=== PATIENT | female | born 1985 | race Caucasian/White ===

== ENCOUNTER 2016-12-26 14:19 | Emergency (ER) | payer BC, OTHER ==
--- NOTE | 2016-12-26 14:48 | EDM.PDOC ---
ED HPI GENERAL MEDICAL PROBLEM - General Chief Complaint: Genitourinary Problem Stated Complaint: POSSIBLE UTI Time Seen by Provider: 12/26/16 14:37 - History of Present Illness INITIAL COMMENTS - FREE TEXT/NARRATIVE: HISTORY AND PHYSICAL: History of present illness: The patient is a healthy 31-year-old female who follows at [facility] with Dr. Vásquez and presents with complaints of 24 hours of pressure with urination , frequency of urination of small amounts, dysuria and some slight hematuria yesterday. Patient denies any flank pain abdominal pain nausea vomiting or diarrhea and has had no fevers or chills. Patient denies STD risks and has never had any issues. Patient states she has a Mirena in place. Patient states that she has taken extu-bgf-[id number] cranberry pills but nothing else. Review of systems: As per history of present illness and below otherwise all systems reviewed and negative. Past medical history: As per history of present illness and as reviewed below otherwise noncontributory. Surgical history: As per history of present illness and as reviewed below otherwise noncontributory. Social history: No reported history of drug or alcohol abuse. Family history: As per history of present illness and as reviewed below otherwise noncontributory. Physical exam: Gen.: Well-developed well-nourished female who is nontoxic and vital signs have been reviewed by me. HEENT: Atraumatic, normocephalic, negative for conjunctival pallor or scleral icterus, mucous membranes moist, throat clear, neck supple, nontender, trachea midline. Lungs: Clear to auscultation, breath sounds equal bilaterally, chest nontender. Heart: S1S2, regular rate and rhythm no overt murmurs Abdomen: Soft, nondistended, nontender. NABS Pelvis: Stable nontender. Genitourinary: Deferred. Rectal: Deferred. Extremities: Atraumatic, negative for cords or calf pain. Neurovascular unremarkable. Neuro: Awake, alert, oriented. Cranial nerves II through XII unremarkable. Cerebellum unremarkable. Motor and sensory unremarkable throughout. Exam nonfocal. Diagnostics: UA UCG urine culture Therapeutics: [] Impression: Dysuria/UTI-cystitis Definitive disposition and diagnosis as appropriate pending reevaluation and review of above. hypogastric Pain Score (Numeric/FACES): 7 - Related Data Allergies Allergy/AdvReac Type Severity Reaction Status Date / Time No Known Allergies Allergy Verified 12/26/16 14:40 Home Meds: Home Meds . [No Known Home Meds] 12/26/16 [History] Past Medical History - Past Health History Medical/Surgical History: Denies Medical/Surgical History Social & Family History - Tobacco Use Smoking Status *Q: Current Every Day Smoker Years of Tobacco use: 14 Second Hand Smoke Exposure: No - Alcohol Use Days Per Week of Alcohol Use: 0 Number of Drinks Per Day: 2 Total Drinks Per Week: 0 - Recreational Drug Use Recreational Drug Use: No ED ROS GENERAL - Review of Systems Review Of Systems: ROS reveals no pertinent complaints other than HPI. ED EXAM, GENERAL - Physical Exam Exam: See Below (See dictation) Course - Vital Signs Last Recorded V/S: Last Vital Signs Temp 36.7 C 12/26/16 14:19 Pulse 99 12/26/16 14:19 Resp 18 12/26/16 14:19 BP 117/71 12/26/16 14:19 Pulse Ox 95 12/26/16 14:19 - Orders/Labs/Meds Orders: Active Orders 24 hr Category Date Time Status CULTURE URINE [RM] Stat Lab 12/26/16 15:10 Received Labs: Laboratory Tests 12/26/16 12/26/16 Range/Units 15:10 15:10 Urine Color DARK YELLOW Urine Appearance CLEAR Urine pH 6.0 (5.0-8.0) Ur Specific [place] 1.020 (1.001-1.035) Urine Protein >=300 (NEGATIVE) mg/dL Urine Glucose (UA) NEGATIVE (NEGATIVE) mg/dL Urine Ketones TRACE H (NEGATIVE) mg/dL Urine Occult Blood LARGE H (NEGATIVE) Urine Nitrite NEGATIVE (NEGATIVE) Urine Bilirubin NEGATIVE (NEGATIVE) Urine Urobilinogen 0.2 (<2.0) EU/dL Ur Leukocyte Esterase NEGATIVE (NEGATIVE) Urine RBC TOO NUMBEROUS TO CT H (0-2/HPF) Urine WBC 15-20 (0-5/HPF) Ur Epithelial Cells MODERATE (NONE-FEW) Urine Bacteria FEW (NEGATIVE) Urine Mucus MODERATE (NONE-MOD) Urine HCG, Qual NEGATIVE (NEGATIVE) Departure - Departure Time of Disposition: 15:45 Disposition: Home, Self-Care 01 Clinical Impression: Dysuria, UTI, Urinary tract infectious disease - Discharge Information Referrals: Best Vásquez MD [Primary Care Provider] - Forms: ED Department Discharge Additional Instructions: The following information is given to patients seen in the emergency department who are being discharged to home. This information is to outline your options for follow-up care. We provide all patients seen in our emergency department with a follow-up referral. The need for follow-up, as well as the timing and circumstances, are variable depending upon the specifics of your emergency department visit. If you don't have a primary care physician on staff, we will provide you with a referral. We always advise you to contact your personal physician following an emergency department visit to inform them of the circumstance of the visit and for follow-up with them and/or the need for any referrals to a consulting specialist. The emergency department will also refer you to a specialist when appropriate. This referral assures that you have the opportunity for followup care with a specialist. All of these measure are taken in an effort to provide you with optimal care, which includes your followup. Under all circumstances we always encourage you to contact your private physician who remains a resource for coordinating your care. When calling for followup care, please make the office aware that this follow-up is from your recent emergency room visit. If for any reason you are refused follow-up, please contact the [facility] emergency department at and ask to speak to the emergency department charge nurse. [address] [place] [address] Push hydration and please contact your provider, Dr. Vásquez, at [facility] for follow-up and further evaluation/care. Return to ER as needed and as discussed. Please take medications as directed and be sure to finish the antibiotics you have been given - My Orders Last 24 Hours: My Active Orders 12/26/16 15:10 CULTURE URINE [RM] Stat - Assessment/Plan Last 24 Hours: My Active Orders 12/26/16 15:10 CULTURE URINE [RM] Stat
[2016-12-26 15:59] VITALS: BP 118/75
== END 2016-12-26 15:56 | disposition home or self-care (01) ==
LOC: MW.ED 14:19
DX: N39.0 Urinary tract infection, site not specified (principal); F17.210 Nicotine dependence, cigarettes, uncomplicated
CPT/HCPCS: 81001; 81025; 87086; 87088; 87186; 99283

== ENCOUNTER 2016-12-29 15:36 | Emergency (ER) | payer BC ==
--- NOTE | 2016-12-29 16:09 | EDM.PDOC ---
ED HPI GENERAL MEDICAL PROBLEM - General Chief Complaint: Flank Pain Stated Complaint: UTI NOT GETTING ANY BETTER Time Seen by Provider: 12/29/16 15:45 Source of Information: Reports: Patient History Limitations: Reports: No Limitations - History of Present Illness INITIAL COMMENTS - FREE TEXT/NARRATIVE: HISTORY AND PHYSICAL: History of present illness: Patient is a 31-year-old female who presents to the emergency room today with complaints of dysuria, pelvic pain that radiates to bilateral flanks, and chills. She states she has had dysuria with pressure for approximately 1 week prior to today. She was seen in the emergency room on 12-26-2016 for UTI symptoms and was placed on Bactrim DS and Pyridium. She states that the discomfort with urination has subsided since completing Pyridium, but still has pressure in her suprapubic/low abdomin that radiates into both flank areas. The urine culture reveals that there is Escherichia coli in the urine with sensitivity to most antibiotics. Has been taking cranberry pills [id number]. Has an IUD and had a negative test on 12-26-2016. Review of systems: As per history of present illness and below otherwise all systems reviewed and negative. Past medical history: As per history of present illness and as reviewed below otherwise noncontributory. Surgical history: As per history of present illness and as reviewed below otherwise noncontributory. Social history: No reported history of drug or alcohol abuse. Family history: As per history of present illness and as reviewed below otherwise noncontributory. Physical exam: HEENT: Atraumatic, normocephalic, pupils reactive, negative for conjunctival pallor or scleral icterus, mucous membranes moist, throat clear, neck supple, nontender, trachea midline. Lungs: Clear to auscultation, breath sounds equal bilaterally, chest nontender. Heart: S1S2, regular, negative for clicks, rubs, or JVD. Abdomen: Soft, nondistended, suprapubic tenderness with palpation. Negative for masses or hepatosplenomegaly. Positive for costovertebral tenderness bilaterally. Pelvis: Stable nontender. Genitourinary: Deferred. Rectal: Deferred. Extremities: Atraumatic, negative for cords or calf pain. Neurovascular unremarkable. Neuro: Awake, alert, oriented. Cranial nerves II through XII unremarkable. Cerebellum unremarkable. Motor and sensory unremarkable throughout. Exam nonfocal. The CT scan showed that the bladder has wall thickening with perivesical stranding, consistent with cystitis. This was shared with the patient. Reviewing the urine culture her current Bactrim should be sufficient in treating her UTI. Patient states that the dysuria was alleviated after completing the Pyridium. I did encourage her to increase her oral fluids continue taking her prescribed antibiotic. Tramadol will be prescribed as needed for pain management. Diagnostics: CBC, CMP, CT abdomen and pelvis with contrast Therapeutics: IV fluids, Toradol Impression: UTI with cystitis Plan: 1. Please continue your antibiotic as prescribed. Encourage oral fluids. Take tramadol as needed for pain management. This medication may cause drowsiness or do not while needing to be functioning or driving. May take ibuprofen as needed for breakthrough pain. Apply gentle heat to the area as needed for pain relief as well. 2. Follow-up with your primary care provider in the next 1-2 days. Return to the ED as needed as discussed. Definitive disposition and diagnosis as appropriate pending reevaluation and review of above. Duration: Day(s): pelvic/bilateral flank Pain Score (Numeric/FACES): 7 - Related Data Allergies Allergy/AdvReac Type Severity Reaction Status Date / Time No Known Allergies Allergy Verified 12/29/16 16:00 Home Meds: Home Meds . 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 ED EXAM, RENAL/ - Physical Exam Exam: See Below (See dictation) Course - Vital Signs Last Recorded V/S: Last Vital Signs Temp 36.6 C 12/29/16 15:57 Pulse 73 12/29/16 15:57 Resp 16 12/29/16 15:57 BP 123/91 H 12/29/16 15:57 Pulse Ox 98 12/29/16 15:57 - Orders/Labs/Meds Orders: Active Orders 24 hr Category Date Time Status Abdomen Pelvis w Cont [CT] Stat Exams 12/29/16 16:01 Taken Labs: Laboratory Tests 12/29/16 12/29/16 Range/Units 16:09 16:09 WBC 10.86 (4.0-11.0) K/uL RBC 4.32 (4.30-5.90) M/uL Hgb 14.4 (12.0-16.0) g/dL Hct 42.9 (36.0-46.0) % MCV 99.3 H (80.0-98.0) fL MCH 33.3 H (27.0-32.0) pg MCHC 33.6 (31.0-37.0) g/dL RDW Std Deviation 44.4 (28.0-62.0) fl RDW Coeff of Yahaira 12 (11.0-15.0) % Plt Count 233 (150-400) K/uL MPV 10.30 (7.40-12.00) fL Neut % (Auto) 67.8 (48.0-80.0) % Lymph % (Auto) 26.2 (16.0-40.0) % Whitman % (Auto) 4.5 (0.0-15.0) % Eos % (Auto) 0.9 (0.0-7.0) % Baso % (Auto) 0.6 (0.0-1.5) % Neut # (Auto) 7.4 H (1.4-5.7) K/uL Lymph # (Auto) 2.9 H (0.6-2.4) K/uL Whitman # (Auto) 0.5 (0.0-0.8) K/uL Eos # (Auto) 0.1 (0.0-0.7) K/uL Baso # (Auto) 0.1 (0.0-0.1) K/uL Nucleated RBC % 0.0 /100WBC Nucleated RBCs # 0 K/uL Sodium 139 (136-146) mmol/L Potassium 4.0 (3.5-5.1) mmol/L Chloride 104 (98-110) mmol/L Carbon Dioxide 24 (21-31) mmol/L BUN 7 (6.0-23.0) mg/dL Creatinine 0.7 (0.6-1.5) mg/dL Est Cr Clr Drug Dosing TNP Estimated GFR (MDRD) > 60.0 ml/min Glucose 86 (60-110) mg/dL Calcium 9.4 (8.8-10.8) mg/dL Total Bilirubin 1.0 (0.1-1.5) mg/dL AST 20 (5-40) IU/L ALT 15 (8-54) IU/L Alkaline Phosphatase 56 (40-150) Total Protein 7.3 (6.0-8.0) g/dL Albumin 4.2 (3.5-5.0) g/dL Globulin 3.1 (2.0-3.5) g/dL Albumin/Globulin Ratio 1.4 (1.3-2.8) Meds: Medications Discontinued Medications Generic Name Dose Route Start Last Admin Trade Name Freq PRN Reason Stop Dose Admin Sodium Chloride 1,000 mls @ 999 mls/hr 12/29/16 16:28 12/29/16 16:33 Normal Saline IV 12/29/16 17:28 999 mls/hr STAT ONE Administration Iopamidol 100 ml 12/29/16 16:58 12/29/16 16:58 Isovue Multipack-370 (76%) IVPUSH 12/29/16 16:59 100 ml ONETIME STA Administration Ketorolac Tromethamine 30 mg 12/29/16 16:23 12/29/16 16:33 Toradol IVPUSH 12/29/16 16:24 30 mg ONETIME ONE Administration Departure - Departure Time of Disposition: 18:08 Disposition: Home, Self-Care 01 Clinical Impression: UTI, Urinary tract infectious disease - Discharge Information Referrals: Best Vásquez MD [Primary Care Provider] - Forms: ED Department Discharge Additional Instructions: My general discharge The following information is given to patients seen in the emergency department who are being discharged to home. This information is to outline your options for follow-up care. We provide all patients seen in our emergency department with a follow-up referral. The need for follow-up, as well as the timing and circumstances, are variable depending upon the specifics of your emergency department visit. If you don't have a primary care physician on staff, we will provide you with a referral. We always advise you to contact your personal physician following an emergency department visit to inform them of the circumstance of the visit and for follow-up with them and/or the need for any referrals to a consulting specialist. The emergency department will also refer you to a specialist when appropriate. This referral assures that you have the opportunity for follow-up care with a specialist. All of these measure are taken in an effort to provide you with optimal care, which includes your follow-up. Under all circumstances we always encourage you to contact your private physician who remains a resource for coordinating your care. When calling for follow-up care, please make the office aware that this follow-up is from your recent emergency room visit. If for any reason you are refused follow-up, please contact the [facility] Emergency Department at and asked to speak to the emergency department charge nurse. [facility] [address] [place] [phone] 1. Please continue your antibiotic as prescribed. Encourage oral fluids. Take tramadol as needed for pain management. This medication may cause drowsiness or do not while needing to be functioning or driving. May take ibuprofen as needed for breakthrough pain. Apply gentle heat to the area as needed for pain relief as well. 2. Follow-up with your primary care provider in the next 1-2 days. Return to the ED as needed as discussed. - My Orders Last 24 Hours: My Active Orders 12/29/16 16:01 Abdomen Pelvis w Cont [CT] Stat - Assessment/Plan Last 24 Hours: My Active Orders 12/29/16 16:01 Abdomen Pelvis w Cont [CT] Stat
[2016-12-29] MEDS ORDERED: Ketorolac 30 MG/ML SDV IVPUSH ONE (16:23)
[2016-12-29] MEDS ORDERED: Sodium Chloride 0.9% 1,000 ML IV ONE (16:28)
[2016-12-29 16:34] LABS: CHLORIDE,CL 104 mmol/L (98-110); SODIUM,NA 139 mmol/L (136-146)
[2016-12-29] MEDS ORDERED: Iopamidol 755 MG/ML 500 ML Multipack Bottle IVPUSH STA (16:58)
[2016-12-29 18:24] VITALS: BP 119/76
--- NOTE | 2016-12-30 12:25 | CT ---
EXAM DATE: 12/29/16 PATIENT'S AGE: 31 Patient: MACK RODRIGUEZ Facility: [place], [place] Site Site : 1985 Study: CT Abdomen/Pelvis [id number] 5:06:51 PM Ordering Physician: AUSTEN LANCASTER NP Final Report: INDICATION: BILATERAL FLANK PAIN, RECENT UTI CT ABDOMEN AND PELVIS WITH CONTRAST TECHNIQUE: Multidetector CT imaging was performed through the abdomen and pelvis following intravenous contrast administration using 100 mL Isovue 370. Coronal and sagittal reconstructions were generated. COMPARISON: None. FINDINGS: Lower chest: Lung bases are clear aside from trace left basilar atelectasis. Breast implants are noted, incompletely imaged. Liver: 3.5 centimeter hypodensity in the left hepatic lobe adjacent to the IVC, with lobulated peripheral enhancement, consistent with a hemangioma. Small probable hemangioma in the right hepatic lobe on image 32 of series 201 and a small probable cyst in the right hepatic lobe on image 34 of series 201. Gallbladder and bile ducts: No gallbladder wall thickening or calcified gallstones. No biliary dilation identified. Pancreas: Unremarkable. Spleen: Normal. Adrenals: No nodules or masses. Kidneys, ureters, and urinary bladder: No renal masses or hydronephrosis. No convincing evidence of pyelonephritis. Diffuse wall thickening of the urinary bladder with perivesical stranding, consistent with cystitis. Gastrointestinal tract: Normal caliber bowel without wall thickening. The appendix is normal. Vascular structures: Normal for age. Peritoneum: Trace amount of free fluid in the lower pelvis posteriorly. No free air or evidence of intra-abdominal abscess. Lymph nodes: No pathologically enlarged nodes identified. Reproductive organs: IUD within the uterus. No pelvic masses. Bones: Normal for age. IMPRESSION: 1. Urinary bladder wall thickening with perivesical stranding, consistent with cystitis. 2. Nonacute additional findings as detailed above. JERRY WALKER MD [employer] Dictated by Travis Walker MD @ 12/29/2016 5:48:26 PM Dictated by: Travis Walker MD @ 12/29/2016 17:51:12 (Electronic Signature) Report Signed by Proxy. [facility]
== END 2016-12-29 18:18 | disposition home or self-care (01) ==
LOC: MW.ED 15:36
DX: N30.90 Cystitis, unspecified without hematuria (principal); F17.210 Nicotine dependence, cigarettes, uncomplicated
CPT/HCPCS: 36415; 74177; 80053; 85025; 96361; 96374; 99284; J1885; J7040; Q9967; 99283

== ENCOUNTER 2017-04-07 13:35 | Emergency (ER) | payer SELFPAY ==
[2017-04-07] MEDS ORDERED: Ibuprofen 600 MG Tab PO ONE (15:24)
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
[2017-04-07 16:44] VITALS: BP 110/76
--- NOTE | 2017-04-10 14:56 | CR ---
EXAM DATE: 04/07/17 PATIENT'S AGE: 31 Patient: MACK RODRIGUEZ Facility: [place], [place] Site . Site : 1985 Study: XRay Extremity Right hand [id number]/[id number] 3:48:05 PM Ordering Physician: Austyn Tamez Final Report: Indication: Injury and pain Technique: Right hand 2 views Comparison: None Findings: Bones: Alignment is normal. No fractures or bone lesions. Joint spaces: Unremarkable. Soft tissues: Unremarkable. Impression: No sign of acute injury. Dictated by Bunny Cheatham MD @ Apr 07 2017 4:16PM (Electronic Signature) Report Signed by Proxy. ANDRAE
== END 2017-04-07 16:15 | disposition home or self-care (01) ==
LOC: MW.ED 13:35
DX: S61.411A Laceration without foreign body of right hand, initial encounter (principal); S00.33XA Contusion of nose, initial encounter; F17.210 Nicotine dependence, cigarettes, uncomplicated; F41.0 Panic disorder [episodic paroxysmal anxiety]; W22.01XA Walked into wall, initial encounter
CPT/HCPCS: 73120; 99283; A9270

== ENCOUNTER 2019-04-29 13:42 | Emergency (ER) | payer OTHER ==
[2019-04-29] MEDS ORDERED: Sodium Chloride 0.9% 1,000 ML IV ONE (14:49)
[2019-04-29] MEDS ORDERED: Ondansetron 4 MG/2 ML SDV IVPUSH ONE (14:49)
--- NOTE | 2019-04-29 15:04 | EDM.PDOC ---
ED HPI GENERAL MEDICAL PROBLEM - General Chief Complaint: General Stated Complaint: FLU/DEHYDRATION Time Seen by Provider: 04/29/19 13:44 Source of Information: Reports: Patient History Limitations: Reports: No Limitations - History of Present Illness INITIAL COMMENTS - FREE TEXT/NARRATIVE: HISTORY OF PRESENT ILLNESS: Patient is a 33-year-old female who was diagnosed with influenza on Monday. She was prescribed Tamiflu and now is having nausea , vomiting ,diarrhea, which is nonbloody. Had 3 episodes of emesis today. Patient had tactile fever at home, generalized malaise and myalgias. Denies any rash or neck stiffness. No abdominal pain or urinary symptoms. Patient denies , is on Mirena. Denies any chest pain or dyspnea. Here she feels dehydrated and is requesting IV fluids. REVIEW OF SYSTEMS: Other than the symptoms associated with the present events, the following is reported with regard to recent health: General: (+) fever. HENT: (-) congestion. Respiratory: (-) cough. Cardiovascular: (-) chest pain. GI: (-) abdominal pain. (+) n/v/d : (-) urinary complaints. Musculoskeletal: (+) generalized myalgias Endocrine: (+) generalized weakness. Neurological: (-) localized weakness. Skin: (-) rash PAST MEDICAL HISTORY: reviewed as per nursing notes SOCIAL HISTORY: reviewed as per nursing notes, MEDICATIONS: Per nurse's note ALLERGIES: Per nurse's note, reviewed by me PHYSICAL EXAMINATION: GENERALIZED APPEARANCE: well developed, well nourished in no distress VITAL SIGNS: Per nurse's note, reviewed by me SKIN: Warm, dry; (-) cyanosis; (-) rash. HEAD: (-) scalp swelling, (-) tenderness. EYES: (-) conjunctival pallor, (-) scleral icterus. ENMT: (-) stridor; mucous membranes moist. No pharyngeal erythema. Uvula midline. No trismus. No phonation changes. NECK: (-) tenderness, (-) stiffness, CHEST AND RESPIRATORY: (-) rales, (-) rhonchi, (-) wheezes; breath sounds equal bilaterally. HEART AND CARDIOVASCULAR: (-) irregularity; (-) murmur, (-) gallop. ABDOMEN AND GI: Soft; (-) tenderness, (-) guarding, (-) rebound, (-) palpable masses, no McBurney's point tenderness. No CVA tenderness EXTREMITIES: (-) deformity, (-) edema. NEURO AND PSYCH: Alert. Cranial nerves grossly intact; strength symmetric. gait steady EMERGENCY DEPARTMENT COURSE AND TREATMENT: Patient's condition remained stable during Emergency Department evaluation. After history, physical examthe etiology for the patient's vomiting/diarrhea is likely due to influenza itself or side effect of Tamiflu. Do not suspect acute abdominal or emergent etiology. On serial examination, the abdomen remained soft without peritoneal signs. After treatment, vomiting resolved and hydration status was satisfactory. I think the patient is at low risk for significant abdominal pathology based on serial exams and clinical evaluation. I felt that outpatient management with close followup by the patient's primary care provider in 1-2 days was appropriate. The patient's questions were answered, and discharge precautions and reasons to return to the clinic were discussed. PLAN AND FOLLOW-UP: Patient received written and verbal instructions regarding this condition. Return to ED immediately with any new or worsening symptoms. Follow up to be arranged by patient with pcp in 1-2 days for further evaluation. Given discharge precautions. Patient expressed verbal understanding. 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 History: Reports: Anxiety, Panic Attack - Infectious Disease History Infectious Disease History: Reports: Influenza Social & Family History - Family History Family Medical History: Noncontributory - Tobacco Use Smoking Status *Q: Never Smoker Second Hand Smoke Exposure: No - Caffeine Use Caffeine Use: Reports: None - Recreational Drug Use Recreational Drug Use: No ED ROS GENERAL - Review of Systems Review Of Systems: See Below (see dictation) ED EXAM, GENERAL - Physical Exam Exam: See Below (see dictation) Course - Vital Signs Last Recorded V/S: Last Vital Signs Temp 98.1 F 04/29/19 14:06 Pulse 71 04/29/19 14:06 Resp 16 04/29/19 14:06 BP 117/78 04/29/19 14:06 Pulse Ox 98 04/29/19 14:06 - Orders/Labs/Meds Orders: Active Orders 24 hr Category Date Time Status Encourage Fluids [Oral Fluid Challenge] [RC] ASDIRECTED Care 04/29/19 15:29 Active Sodium Chloride 0.9% [Normal Saline] 1,000 ml Med 04/29/19 14:49 Active IV .Bolus Medication Orders Sodium Chloride (Normal Saline) 1,000 mls @ 1,000 mls/hr IV .Bolus ONE Stop: 04/29/19 15:48 Last Admin: 04/29/19 15:05 Dose: 1,000 mls/hr Meds: Medications Generic Name Dose Route Start Last Admin Trade Name Freq PRN Reason Stop Dose Admin Sodium Chloride 1,000 mls @ 1,000 mls/hr 04/29/19 14:49 04/29/19 15:05 Normal Saline IV 04/29/19 15:48 1,000 mls/hr .Bolus ONE Administration Discontinued Medications Generic Name Dose Route Start Last Admin Trade Name Freq PRN Reason Stop Dose Admin Ondansetron HCl 4 mg 04/29/19 14:49 04/29/19 15:06 Zofran IVPUSH 04/29/19 14:50 4 mg ONETIME ONE Administration Departure - Departure Time of Disposition: 15:40 Disposition: Home, Self-Care 01 Condition: Good Clinical Impression: Vomiting and diarrhea - Discharge Information *PRESCRIPTION DRUG MONITORING PROGRAM REVIEWED*: Not Applicable *COPY OF PRESCRIPTION DRUG MONITORING REPORT IN PATIENT LOTTIE: Not Applicable Prescriptions: Ondansetron [Zofran ODT] 4 mg PO Q6H PRN #12 tab.dis PRN Reason: Nausea/Vomiting Instructions: Diarrhea, Adult, Nausea and Vomiting, Adult Referrals: Shonna Sandhu SALES ORDER PROCESSOR [Primary Care Provider] - 2 Days Forms: ED Department Discharge Additional Instructions: The following information is given to patients seen in the emergency department who are being discharged to home. This information is to outline your options for follow-up care. We provide all patients seen in our emergency department with a follow-up referral. The need for follow-up, as well as the timing and circumstances, are variable depending upon the specifics of your emergency department visit. If you don't have a primary care physician on staff, we will provide you with a referral. We always advise you to contact your personal physician following an emergency department visit to inform them of the circumstance of the visit and for follow-up with them and/or the need for any referrals to a consulting specialist. The emergency department will also refer you to a specialist when appropriate. This referral assures that you have the opportunity for follow-up care with a specialist. All of these measure are taken in an effort to provide you with optimal care, which includes your follow-up. Under all circumstances we always encourage you to contact your private physician who remains a resource for coordinating your care. When calling for follow-up care, please make the office aware that this follow-up is from your recent emergency room visit. If for any reason you are refused follow-up, please contact the [facility] Emergency Department at and asked to speak to the emergency department charge nurse. Sepsis Event Note - Evaluation Sepsis Screening Result: No Definite Risk - Focused Exam Vital Signs: Vital Signs Temp Pulse Resp BP Pulse Ox 04/29/19 14:06 98.1 F 71 16 117/78 98 Date Exam was Performed: 04/29/19 Time Exam was Performed: 15:40 - My Orders Last 24 Hours: My Active Orders 04/29/19 14:49 Sodium Chloride 0.9% [Normal Saline] 1,000 ml IV .Bolus 04/29/19 15:29 Encourage Fluids [Oral Fluid Challenge] [RC] ASDIRECTED - Assessment/Plan Last 24 Hours: My Active Orders 04/29/19 14:49 Sodium Chloride 0.9% [Normal Saline] 1,000 ml IV .Bolus 04/29/19 15:29 Encourage Fluids [Oral Fluid Challenge] [RC] ASDIRECTED
[2019-04-29 16:12] VITALS: BP 124/73; PULSE 66
== END 2019-04-29 16:20 | disposition home or self-care (01) ==
LOC: MW.ED 13:42
DX: R11.2 Nausea with vomiting, unspecified (principal); R19.7 Diarrhea, unspecified; R50.9 Fever, unspecified; R53.81 Other malaise; F41.9 Anxiety disorder, unspecified; Z79.899 Other long term (current) drug therapy
CPT/HCPCS: 96361; 96374; 99283; J2405; J7030

== ENCOUNTER 2019-09-29 10:54 | Emergency (ER) | payer OTHER ==
[2019-09-29] MEDS ORDERED: Ondansetron 4 MG/2 ML SDV IVPUSH ONE (11:28)
[2019-09-29] MEDS ORDERED: Morphine 4 MG/ML Syringe IVPUSH ONE (11:28)
--- NOTE | 2019-09-29 11:33 | EDM.PDOC ---
ED HPI GENERAL MEDICAL PROBLEM - General Chief Complaint: Genitourinary Problem Stated Complaint: BACK PAIN Time Seen by Provider: 09/29/19 10:57 - History of Present Illness INITIAL COMMENTS - FREE TEXT/NARRATIVE: 34-year-old female presenting with sudden severe inferior right lower quadrant pain that started during intercourse. Nothing unusual about the intercourse no vaginal bleeding patient was doing well prior to the episode. Pain improves with stillness and rest but any motion worsens the symptoms she has to walk on her tiptoes. No fevers no radiation of the pain no vaginal discharge. No nausea no vomiting and again patient was in her normal state of health prior to this. She does have a history of a similar but less severe episode sometime ago she was seen [facility] that time and diagnosed with an ovarian cyst. No history of prior surgeries no meds or allergies. Symptoms currently moderate but worsened significantly with motion. Patient does not have a history of any prior STIs pelvic Pain Score (Numeric/FACES): 7 - Related Data Allergies Allergy/AdvReac Type Severity Reaction Status Date / Time No Known Allergies Allergy Verified 09/29/19 11:03 Home Meds: Home Meds . 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 Skin: No rash. Eyes: No vision problems. ENT: No sore throat. Neck: No neck stiffness. Respiratory: No shortness of breath. Cardiac: No chest pain. Gastrointestinal: Per HPI Urinary: No dysuria. Musculoskeletal: No myalgias/arthralgias. Neurologic: No headache. ED EXAM, GENERAL - Physical Exam Exam: See Below Free Text/Narrative:: General Appearance: No acute distress, appears comfortable Skin: No rash HEENT: Normocephalic/atraumatic, sclera anicteric, mucous membranes moist Neck: Normal range of motion Chest and Lungs: Bilateral breath sounds, clear to auscultation Cardiovascular: Regular rate and rhythm, no murmur Abdomen: Soft, right lower quadrant tenderness with some guarding : Normal external female genitalia on speculum exam significant pain unable to tolerate visualization of the cervix no signs of bleeding or abnormal discharge on bimanual exam significant discomfort particularly with manipulation of the cervix service feels closed no blood noted Back: Normal Musculoskeletal: No edema or tenderness Neurologic: Awake, alert, no obvious deficits, moving all extremities Psychiatric: Appropriate, cooperative Course - Vital Signs Last Recorded V/S: Last Vital Signs Temp 97.6 F 09/29/19 11:04 Pulse 71 09/29/19 13:21 Resp 16 09/29/19 13:21 BP 123/87 09/29/19 14:27 Pulse Ox 98 09/29/19 13:21 - Orders/Labs/Meds Labs: Laboratory Tests 09/29/19 09/29/19 09/29/19 Range/Units 11:09 11:09 11:30 WBC 13.72 H (4.0-11.0) K/uL RBC 4.61 (4.30-5.90) M/uL Hgb 14.9 (12.0-16.0) g/dL Hct 43.7 (36.0-46.0) % MCV 94.8 (80.0-98.0) fL MCH 32.3 H (27.0-32.0) pg MCHC 34.1 (31.0-37.0) g/dL RDW Std Deviation 44.3 (28.0-62.0) fl RDW Coeff of Yahaira 13 (11.0-15.0) % Plt Count 195 (150-400) K/uL MPV 10.90 (7.40-12.00) fL Neut % (Auto) 73.0 (48.0-80.0) % Lymph % (Auto) 20.5 (16.0-40.0) % [place] % (Auto) 4.7 (0.0-15.0) % Eos % (Auto) 1.4 (0.0-7.0) % Baso % (Auto) 0.4 (0.0-1.5) % Neut # (Auto) 10.0 H (1.4-5.7) K/uL Lymph # (Auto) 2.8 H (0.6-2.4) K/uL [place] # (Auto) 0.6 (0.0-0.8) K/uL Eos # (Auto) 0.2 (0.0-0.7) K/uL Baso # (Auto) 0.1 (0.0-0.1) K/uL Nucleated RBC % 0.0 /100WBC Nucleated RBCs # 0 K/uL Sodium (136-145) mmol/L Potassium (3.5-5.1) mmol/L Chloride (98-107) mmol/L Carbon Dioxide (21.0-32.0) mmol/L BUN (7.0-18.0) mg/dL Creatinine (0.6-1.0) mg/dL Est Cr Clr Drug Dosing mL/min Estimated GFR (MDRD) ml/min Glucose (74-106) mg/dL Calcium (8.5-10.1) mg/dL Total Bilirubin (0.2-1.0) mg/dL AST (15-37) IU/L ALT (14-63) IU/L Alkaline Phosphatase (46-116) U/L Total Protein (6.4-8.2) g/dL Albumin (3.4-5.0) g/dL Globulin (2.6-4.0) g/dL Albumin/Globulin Ratio (0.9-1.6) Lipase (73-393) U/L Urine Color YELLOW Urine Appearance CLEAR Urine pH 6.5 (5.0-8.0) Ur Specific [place] 1.025 (1.001-1.035) Urine Protein NEGATIVE (NEGATIVE) mg/dL Urine Glucose (UA) NEGATIVE (NEGATIVE) mg/dL Urine Ketones NEGATIVE (NEGATIVE) mg/dL Urine Occult Blood NEGATIVE (NEGATIVE) Urine Nitrite NEGATIVE (NEGATIVE) Urine Bilirubin NEGATIVE (NEGATIVE) Urine Urobilinogen 0.2 (<2.0) EU/dL Ur Leukocyte Esterase NEGATIVE (NEGATIVE) Urine RBC 0-1 (0-2/HPF) Urine WBC 0-1 (0-5/HPF) Ur Epithelial Cells FEW (NONE-FEW) Urine Bacteria RARE (NEGATIVE) Urine HCG, Qual NEGATIVE (NEGATIVE) 09/29/19 Range/Units 11:30 WBC (4.0-11.0) K/uL RBC (4.30-5.90) M/uL Hgb (12.0-16.0) g/dL Hct (36.0-46.0) % MCV (80.0-98.0) fL MCH (27.0-32.0) pg MCHC (31.0-37.0) g/dL RDW Std Deviation (28.0-62.0) fl RDW Coeff of Yahaira (11.0-15.0) % Plt Count (150-400) K/uL MPV (7.40-12.00) fL Neut % (Auto) (48.0-80.0) % Lymph % (Auto) (16.0-40.0) % [place] % (Auto) (0.0-15.0) % Eos % (Auto) (0.0-7.0) % Baso % (Auto) (0.0-1.5) % Neut # (Auto) (1.4-5.7) K/uL Lymph # (Auto) (0.6-2.4) K/uL [place] # (Auto) (0.0-0.8) K/uL Eos # (Auto) (0.0-0.7) K/uL Baso # (Auto) (0.0-0.1) K/uL Nucleated RBC % /100WBC Nucleated RBCs # K/uL Sodium 141 (136-145) mmol/L Potassium 3.9 (3.5-5.1) mmol/L Chloride 105 (98-107) mmol/L Carbon Dioxide 22.3 (21.0-32.0) mmol/L BUN 9 (7.0-18.0) mg/dL Creatinine 0.8 (0.6-1.0) mg/dL Est Cr Clr Drug Dosing 88.32 mL/min Estimated GFR (MDRD) > 60.0 ml/min Glucose 86 (74-106) mg/dL Calcium 8.9 (8.5-10.1) mg/dL Total Bilirubin 0.4 (0.2-1.0) mg/dL AST 20 (15-37) IU/L ALT 24 (14-63) IU/L Alkaline Phosphatase 57 (46-116) U/L Total Protein 7.0 (6.4-8.2) g/dL Albumin 3.9 (3.4-5.0) g/dL Globulin 3.1 (2.6-4.0) g/dL Albumin/Globulin Ratio 1.3 (0.9-1.6) Lipase 206 (73-393) U/L Urine Color Urine Appearance Urine pH (5.0-8.0) Ur Specific [place] (1.001-1.035) Urine Protein (NEGATIVE) mg/dL Urine Glucose (UA) (NEGATIVE) mg/dL Urine Ketones (NEGATIVE) mg/dL Urine Occult Blood (NEGATIVE) Urine Nitrite (NEGATIVE) Urine Bilirubin (NEGATIVE) Urine Urobilinogen (<2.0) EU/dL Ur Leukocyte Esterase (NEGATIVE) Urine RBC (0-2/HPF) Urine WBC (0-5/HPF) Ur Epithelial Cells (NONE-FEW) Urine Bacteria (NEGATIVE) Urine HCG, Qual (NEGATIVE) Meds: Medications Discontinued Medications Generic Name Dose Route Start Last Admin Trade Name Freq PRN Reason Stop Dose Admin Fentanyl 50 mcg 09/29/19 13:03 09/29/19 13:06 Fentanyl IVPUSH 09/29/19 13:04 50 mcg ONETIME ONE Administration Fentanyl Confirm 09/29/19 13:01 09/29/19 13:06 Fentanyl Administered 09/29/19 13:02 Not Given Dose 50 mcg .ROUTE .STK-MED ONE Iopamidol 100 ml 09/29/19 14:03 09/29/19 14:03 Isovue-370 (76%) IVPUSH 09/29/19 14:04 100 ml ONETIME ONE Administration Ketorolac Tromethamine 30 mg 09/29/19 14:45 Toradol IVPUSH 09/29/19 14:46 ONETIME ONE Morphine Sulfate 4 mg 09/29/19 11:28 09/29/19 11:36 Morphine IVPUSH 09/29/19 11:29 4 mg ONETIME ONE Administration Ondansetron HCl 4 mg 09/29/19 11:28 09/29/19 11:36 Zofran IVPUSH 09/29/19 11:29 4 mg ONETIME ONE Administration Departure - Departure Time of Disposition: 14:49 Disposition: Home, Self-Care 01 Condition: Good Clinical Impression: Ruptured ovarian cyst - Discharge Information *PRESCRIPTION DRUG MONITORING PROGRAM REVIEWED*: Not Applicable *COPY OF PRESCRIPTION DRUG MONITORING REPORT IN PATIENT LOTTIE: Not Applicable Instructions: Ovarian Cyst Referrals: Shonna Sandhu NP [Primary Care Provider] - Forms: ED Department Discharge Additional Instructions: Your symptoms should rapidly improve over the next few days. If they get worse or you have any other new symptoms that concern you I encourage you to call your doctor or return to the ER. The following information is given to patients seen in the emergency department who are being discharged to home. This information is to outline your options for follow-up care. We provide all patients seen in our emergency department with a follow-up referral. The need for follow-up, as well as the timing and circumstances, are variable depending upon the specifics of your emergency department visit. If you don't have a primary care physician on staff, we will provide you with a referral. We always advise you to contact your personal physician following an emergency department visit to inform them of the circumstance of the visit and for follow-up with them and/or the need for any referrals to a consulting specialist. The emergency department will also refer you to a specialist when appropriate. This referral assures that you have the opportunity for follow-up care with a specialist. All of these measure are taken in an effort to provide you with optimal care, which includes your follow-up. Under all circumstances we always encourage you to contact your private physician who remains a resource for coordinating your care. When calling for follow-up care, please make the office aware that this follow-up is from your recent emergency room visit. If for any reason you are refused follow-up, please contact the [facility] Emergency Department at and asked to speak to the emergency department charge nurse. Sepsis Event Note (ED) - Evaluation Sepsis Screening Result: No Definite Risk - Focused Exam Vital Signs: Vital Signs Temp Pulse Resp BP Pulse Ox 09/29/19 14:27 123/87 09/29/19 13:21 71 16 98 09/29/19 12:10 16 97 09/29/19 11:04 97.6 F 60 16 123/78 95 - Assessment/Plan Assessment:: 34-year-old female presenting with sudden severe pelvic pain. Most emergent diagnosis to exclude would be ovarian torsion. Emergent ultrasound has been ordered. That said the fact that her symptoms improved with stillness would argue strongly against ovarian torsion and is somewhat reassuring. I would favor ovarian cyst related pain given her prior history and the sudden onset during activity. TOA considered but patient has no risk factors for this. Urinalysis is without UTI and the patient is not . Appendicitis needs to be considered as well I think this is less likely given the lack of any preceding symptoms. However, if ultrasound is unremarkable would plan to follow-up with CT scan. No upper symptoms that would suggest biliary pathology. Labs with minimal leukocytosis otherwise unremarkable. Ultrasound reveals good blood flow in both ovaries. There is a cyst on the right ovary there is some free fluid in the pelvis as well. There is a unclear mass in the left ovary. The IUD is within the uterus. Overall I do think ruptured ovarian cyst is the most likely cause. However, given the severity of her persistent symptoms and the leukocytosis will proceed with CT to exclude appendicitis and other acute abdominal processes. If this is unremarkable would then add Toradol for pain control and reassess. Patient symptoms are improving we will give a dose of Toradol CT scan with trace free fluid consistent with cyst rupture otherwise unremarkable. I do think ruptured ovarian cyst during intercourse is the cause of the patient's presentation patient comfortable going home will do [id number] medications as needed return precautions discussed and understood.
[2019-09-29 11:58] LABS: BLOOD UREA NITROGEN,BUN 9 mg/dL (7.0-18.0); CARBON DIOXIDE,CO2 22.3 mmol/L (21.0-32.0); CHLORIDE,CL 105 mmol/L (98-107); GLUCOSE RANDOM 86 mg/dL (74-106); LIPASE 206 U/L (73-393); POTASSIUM,K 3.9 mmol/L (3.5-5.1); SODIUM,NA 141 mmol/L (136-145)
[2019-09-29] MEDS ORDERED: fentaNYL 50 MCG/ML SDV ONE (13:01)
[2019-09-29] MEDS ORDERED: fentaNYL 50 MCG/ML SDV IVPUSH ONE (13:03)
--- NOTE | 2019-09-29 13:47 | US ---
Pelvic ultrasound: Multiple real-time images were obtained transvaginally. Uterus is anteverted. Echogenic structure within the endometrial cavity is identified which is felt compatible with IUD. Right ovary shows a small 2.2 cm simple cyst which is believed to be physiologic. Left ovary shows a solid-appearing finding which is felt to represent a small collapsing hemorrhagic cyst measuring 2.0 cm. No other cyst or solid finding seen within the ovaries. There is free fluid seen within the pelvis most likely from cyst leakage. Measurements: Uterus: Length 8.6 cm, AP height 5.0 cm, transverse width 4.7 cm Right ovary: 2.9 x 1.7 x 3.1 cm Left ovary: 3.4 x 1.9 x 3.1 cm Impression: 1. Fluid within the cul-de-sac most likely from cyst leakage. 2. Other findings believed to be benign and incidental as described above. Diagnostic code #3 This report was dictated in MDT
[2019-09-29] MEDS ORDERED: Iopamidol 755 Mg/ML 100 ML Bottle IVPUSH ONE (14:03)
--- NOTE | 2019-09-29 14:19 | CT ---
CT abdomen and pelvis Technique: Multiple axial sections were obtained from above the dome of the diaphragm inferiorly through the pubic symphysis. Intravenous contrast was utilized. No oral contrast was given. Comparison: Prior CT abdomen and pelvis exam of 12/29/16. Findings: Bilateral breast prosthesis are partially visualized. Minimal atelectasis is seen posteriorly within both lung bases. Small abnormality noted within the right lobe of the liver which appears to be stable from previous exam and is therefore felt to be benign. No additional abnormality is appreciated within the liver. Spleen appears within normal limits. Adrenal glands show no nodule. Pancreas shows no discrete abnormality. Kidneys show symmetric contrast enhancement without hydronephrosis or mass. Gallbladder contains no calcified gallstones. Aorta shows no aneurysm. No retroperitoneal adenopathy or mesenteric abnormalities are seen. IUD is noted within the uterus. Minimal amount of free fluid seen within the pelvis believed to be physiologic. Appendix is visualized and appears normal in size. No free fluid or inflammatory change is appreciated. Bone window settings were reviewed which appear within normal limits for the patient's age. Impression: 1. Findings believed to be incidental as described above. 2. No acute abnormality is appreciated on CT study of the abdomen and pelvis. Diagnostic code #2 This report was dictated in MDT
[2019-09-29] MEDS ORDERED: Ketorolac 30 MG/ML SDV IVPUSH ONE (14:45)
[2019-09-29] MEDS ORDERED: Ketorolac 30 MG/ML SDV IM ONE (15:12)
[2019-09-29 18:08] VITALS: BP 120/70; PULSE 62
== END 2019-09-29 15:20 | disposition home or self-care (01) ==
LOC: MW.ED 10:54
DX: N83.202 Unspecified ovarian cyst, left side (principal); N83.201 Unspecified ovarian cyst, right side
CPT/HCPCS: 36415; 74177; 76856; 80053; 81001; 81025; 83690; 85025; 96372; 96374; 96375; 99284; J1885; J2270; J2405; J3010; Q9967

== ENCOUNTER 2019-12-21 17:14 | Emergency (ER) | payer OTHER ==
[2019-12-21] MEDS ORDERED: Ketorolac 30 MG/ML SDV IVPUSH ONE (17:33)
[2019-12-21] MEDS ORDERED: Sodium Chloride 0.9% 1,000 ML IV ONE (17:34)
--- NOTE | 2019-12-21 17:57 | EDM.PDOC ---
ED HPI GENERAL MEDICAL PROBLEM - General Chief Complaint: Headache Stated Complaint: HEADACHE AND NOT FEELING WELL Time Seen by Provider: 12/21/19 17:18 Source of Information: Reports: Patient History Limitations: Reports: No Limitations - History of Present Illness INITIAL COMMENTS - FREE TEXT/NARRATIVE: HISTORY AND PHYSICAL: History of present illness: Patient is a 34-year-old female who presents to the emergency room with complaints of generalized headache and body aches since this afternoon. She denies any light sensitivity, noise sensitivity, visual changes, neck pain /stiffness. She does have a minimal concern of COVID-19 she is around people frequently. Patient denies any fever, chills, syncope or near syncope. Denies any chest pain, back pain, shortness of breath or cough. Denies any abdominal pain, nausea, vomiting, diarrhea, constipation or dysuria. No concerns of . Patient has been eating and drinking appropriately. Review of systems: As per history of present illness and below otherwise all systems reviewed and negative. Past medical history: As per history of present illness and as reviewed below otherwise noncontributory. Surgical history: As per history of present illness and as reviewed below otherwise noncontributory. Social history: See social history for further information Family history: As per history of present illness and as reviewed below otherwise noncontributory. Physical exam: General: Well developed and well nourished 34-year-old female. Alert and orientated x 3. Nontoxic in appearance and in no acute distress. Vital signs are stable and have been reviewed by me. Nursing notes were reviewed. HEENT: Atraumatic, normocephalic, pupils equal and reactive bilaterally, negative for conjunctival pallor or scleral icterus, mucous membranes moist, TMs normal bilaterally, throat clear, neck supple, nontender, trachea midline. No drooling or trismus noted. No meningeal signs. No hot potato voice noted. Lungs: Clear to auscultation, breath sounds equal bilaterally, chest nontender. Normal work of breathing, no accessory muscles used. Heart: S1S2, regular rate and rhythm without overt murmur Abdomen: Soft, nondistended, nontender. Skin: Intact, warm, dry. No lesions or rashes noted. Hematologic: No petechiae or purpra. Mucosa appropriate color and normal nail bed color and refill. Extremities: Atraumatic, moves all extremities per self without difficulty or deficits, negative for cords or calf pain. Neurovascular unremarkable. Neuro: Awake, alert, oriented. Cranial nerves II through XII unremarkable. Cerebellum unremarkable. Motor and sensory unremarkable throughout. Exam nonfocal. Psychiatric: Mood and affect are appropriate. Normal thought process. Answering questions appropriately. Notes: Negative COVID screening. Pain is improved after the Ativan. I have spoken with the patient and discussed today's findings, in addition to providing specific details for plan of care. Reassessment at the time of disposition demonstrates that the patient is in no acute distress. The patient is stable for discharge, counseling was provided and we discussed in great detail signs and symptoms that would prompt them to return to the Emergency Department. Medication, follow up and supportive care measures were reviewed and discussed. Voices understanding and is agreeable to plan of care. Denies any further questions or concerns at this time. Diagnostics: COVID Therapeutics: IV fluid, Toradol, Ativan Prescription: None Impression: Headache Plan: 1. Today your COVID screening was negative. 2. Please alternate Tylenol and ibuprofen as needed for pain and fever management. 3. We encourage you to follow up with your primary care provider and/or recommended specialist in the next few days for re-evaluation and further care/management. If your symptoms should worsen, new symptoms develop or any of the signs and symptoms we discussed should arise please return to the emergency room or call 911 (if needed). Definitive disposition and diagnosis as appropriate pending reevaluation and review of above. headache Pain Score (Numeric/FACES): 5 - Related Data Allergies Allergy/AdvReac Type Severity Reaction Status Date / Time No Known Allergies Allergy Verified 12/21/19 17:33 Home Meds: Home Meds . 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 Psychiatric History: Reports: Anxiety, Panic Attack - Infectious Disease History Infectious Disease History: Reports: Influenza - Past Surgical History Other Musculoskeletal Surgeries/Procedures:: breast augmentation Social & Family History - Family History Family Medical History: Noncontributory - Tobacco Use Smoking Status *Q: Current Some Day Smoker Years of Tobacco use: 10 Packs/Tins Daily: 0 - Caffeine Use Caffeine Use: Reports: None - Recreational Drug Use Recreational Drug Use: No ED ROS GENERAL - Review of Systems Review Of Systems: Comprehensive ROS is negative, except as noted in HPI. - Physical Exam Exam: See Below (See dictation) Course - Vital Signs Last Recorded V/S: Last Vital Signs Temp 97.8 F 12/21/19 17:31 Pulse 85 12/21/19 17:31 Resp 16 12/21/19 17:31 BP 96/73 12/21/19 17:31 Pulse Ox 97 12/21/19 17:31 - Orders/Labs/Meds Orders: Active Orders 24 hr Category Date Time Status CORONAVIRUS COVID-19 PCR PHL Stat Lab 12/21/19 17:50 Received Labs: Laboratory Tests 12/21/19 Range/Units 17:50 SARS CoV-2 RNA Rapid GIL NEGATIVE (NEGATIVE) Meds: Medications Discontinued Medications Generic Name Dose Route Start Last Admin Trade Name Freq PRN Reason Stop Dose Admin Sodium Chloride 1,000 mls @ 999 mls/hr 12/21/19 17:34 12/21/19 17:46 Normal Saline IV 12/21/19 18:34 999 mls/hr STAT ONE Administration Ketorolac Tromethamine 30 mg 12/21/19 17:33 12/21/19 17:47 Toradol IVPUSH 12/21/19 17:34 30 mg ONETIME ONE Administration Lorazepam 1 mg 12/21/19 18:59 Ativan IVPUSH 12/21/19 19:00 ONETIME ONE Morphine Sulfate 4 mg 12/21/19 18:28 Morphine IVPUSH 12/21/19 18:29 ONETIME ONE Departure - Departure Time of Disposition: 18:56 Disposition: Home, Self-Care 01 Clinical Impression: Headache Qualifiers: Headache type: tension-type Headache chronicity pattern: acute headache Intractability: not intractable Qualified Code(s): G44.209 - Tension-type headache, unspecified, not intractable - Discharge Information Instructions: Tension Headache, Adult, [id number] Referrals: Shonna Sandhu NP [Primary Care Provider] - Forms: ED Department Discharge Additional Instructions: The following information is given to patients seen in the emergency department who are being discharged to home. This information is to outline your options for follow-up care. We provide all patients seen in our emergency department with a follow-up referral. The need for follow-up, as well as the timing and circumstances, are variable depending upon the specifics of your emergency department visit. If you don't have a primary care physician on staff, we will provide you with a referral. We always advise you to contact your personal physician following an emergency department visit to inform them of the circumstance of the visit and for follow-up with them and/or the need for any referrals to a consulting specialist. The emergency department will also refer you to a specialist when appropriate. This referral assures that you have the opportunity for follow-up care with a specialist. All of these measure are taken in an effort to provide you with optimal care, which includes your follow-up. Under all circumstances we always encourage you to contact your private physician who remains a resource for coordinating your care. When calling for follow-up care, please make the office aware that this follow-up is from your recent emergency room visit. If for any reason you are refused follow-up, please contact the [facility] Emergency Department at and asked to speak to the emergency department charge nurse. [facility] [address] [place], [place] [id number] [address] [address] Thank you for choosing the [facility] emergency department in [place] for your medical needs today. It was a pleasure caring for you. Today you were seen in the emergency department for headache. 1. Today your COVID screening was negative. 2. Please alternate Tylenol and ibuprofen as needed for pain and fever management. 3. We encourage you to follow up with your primary care provider and/or recommended specialist in the next few days for re-evaluation and further care/management. If your symptoms should worsen, new symptoms develop or any of the signs and symptoms we discussed should arise please return to the emergency room or call 911 (if needed). Sepsis Event Note (ED) - Evaluation Sepsis Screening Result: No Definite Risk - Focused Exam Vital Signs: Vital Signs Temp Pulse Resp BP Pulse Ox 12/21/19 17:31 97.8 F 85 16 96/73 97 - My Orders Last 24 Hours: My Active Orders 12/21/19 17:50 CORONAVIRUS COVID-19 PCR PHL Stat - Assessment/Plan Last 24 Hours: My Active Orders 12/21/19 17:50 CORONAVIRUS COVID-19 PCR PHL Stat
[2019-12-21] MEDS ORDERED: Morphine 4 MG/ML Syringe IVPUSH ONE (18:28)
[2019-12-21] MEDS ORDERED: LORazepam 2 MG/ML SDV IVPUSH ONE (18:59)
[2019-12-22 06:21] VITALS: BP 126/75; PULSE 69
== END 2019-12-21 19:59 | disposition home or self-care (01) ==
LOC: MW.ED 17:14
DX: R51 Headache (principal); F17.210 Nicotine dependence, cigarettes, uncomplicated; Z20.828 Contact with and (suspected) exposure to other viral communicable diseases
CPT/HCPCS: 87635; 96361; 96374; 96375; 99284; J1885; J2060; J7030; 99282; U0002

== ENCOUNTER 2020-01-26 10:36 | Emergency (ER) | payer OTHER ==
--- NOTE | 2020-01-26 10:39 | EDM.PDOC ---
ED HPI GENERAL MEDICAL PROBLEM - General Stated Complaint: PANIC ATTACK Time Seen by Provider: 01/26/20 10:36 Source of Information: Reports: Patient History Limitations: Reports: No Limitations - History of Present Illness INITIAL COMMENTS - FREE TEXT/NARRATIVE: 34-year-old female past medical history anxiety, panic attacks presents for apparent panic attack. Patient states that she got into an argument with her boyfriend this morning over his dog urinating in the house. He became very angry and was rude to her. She got very upset and started crying, poured her trazodone on the table, and told him that she would just take all of her pills. She admits that this was an attempt to get his attention, and states that she has no intention of hurting herself or others. She denies any auditory or visual hallucinations. She does note a history of panic disorder, and states that she feels overwhelmed. 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 ED EXAM, GENERAL - Physical Exam Exam: See Below Exam Limited By: No Limitations General Appearance: Alert, WD/WN, Anxious, Other (Tearful) Throat/Mouth: Normal Voice, No Airway Compromise Head: Atraumatic, Normocephalic Neck: Normal Inspection Respiratory/Chest: No Respiratory Distress, Lungs Clear, Normal Breath Sounds, No Accessory Muscle Use Cardiovascular: Normal Peripheral Pulses, Regular Rate, Rhythm Extremities: Normal Inspection Neurological: Alert Psychiatric: Anxious, Tearful Skin Exam: Warm, Dry, Intact, Normal Color Course - Vital Signs Last Recorded V/S: Last Vital Signs Temp 97 F 01/26/20 10:53 Pulse 71 01/26/20 12:00 Resp 16 01/26/20 12:00 BP 114/69 01/26/20 12:00 Pulse Ox 96 01/26/20 12:00 - Orders/Labs/Meds Meds: Medications Discontinued Medications Generic Name Dose Route Start Last Admin Trade Name Milagro PRN Reason Stop Dose Admin Lorazepam 1 mg 01/26/20 10:56 01/26/20 11:07 Ativan PO 01/26/20 10:57 1 mg ONETIME ONE Administration - Re-Assessments/Exams Free Text/Narrative Re-Assessment/Exam: 01/26/20 10:58 Patient presents in a state of emotional distress following an argument with her boyfriend. She denies suicidal or homicidal ideation. Will give Ativan now, allow patient to have some time, and reassess for disposition. 01/26/20 12:52 Patient is feeling much better, continues to deny suicidal or homicidal ideation. She notes that [place] [facility] in [place] to give some space away from her boyfriend. I explained to patient that if she is having any negative thoughts certainly any thoughts about hurting herself or others that she is encouraged to come back to the emergency department, and she agrees with that plan. She does have a therapist that she can talk to about some of these feelings that she is having. Departure - Departure Time of Disposition: 12:52 Disposition: Home, Self-Care 01 Condition: Good Clinical Impression: Anxiety - Discharge Information Instructions: Managing Anxiety, Adult Referrals: Shonna Sandhu NP [Primary Care Provider] - Additional Instructions: The following information is given to patients seen in the emergency department who are being discharged to home. This information is to outline your options for follow-up care. We provide all patients seen in our emergency department with a follow-up referral. The need for follow-up, as well as the timing and circumstances, are variable depending upon the specifics of your emergency department visit. If you don't have a primary care physician on staff, we will provide you with a referral. We always advise you to contact your personal physician following an emergency department visit to inform them of the circumstance of the visit and for follow-up with them and/or the need for any referrals to a consulting specialist. The emergency department will also refer you to a specialist when appropriate. This referral assures that you have the opportunity for follow-up care with a specialist. All of these measure are taken in an effort to provide you with optimal care, which includes your follow-up. Under all circumstances we always encourage you to contact your private miguely montanaian who remains a resource for coordinating your care. When calling for follow-up care, please make the office aware that this follow-up is from your recent emergency room visit. If for any reason you are refused follow-up, please contact the [facility] Emergency Department at and asked to speak to the emergency department charge nurse. Please follow up with your primary care physician. If you do not have a primary care physician, see below: [facility] [address] [place] [id number] [facility] [address] [place] [id number] Sepsis Event Note (ED) - Focused Exam Vital Signs: Vital Signs Temp Pulse Resp BP Pulse Ox 01/26/20 12:00 71 16 114/69 96 01/26/20 10:53 97 F 83 18 139/85 98
[2020-01-26] MEDS ORDERED: LORazepam 1 MG Tab PO ONE (10:56)
[2020-01-26 12:38] VITALS: PULSE 71
[2020-01-26 13:10] VITALS: BP 121/64
== END 2020-01-26 13:04 | disposition home or self-care (01) ==
LOC: MW.ED 10:36
DX: F41.9 Anxiety disorder, unspecified (principal); Z79.899 Other long term (current) drug therapy
CPT/HCPCS: 99283; A9270; 99282

== ENCOUNTER 2020-02-28 09:34 | Emergency (ER) | payer SELFPAY ==
--- NOTE | 2020-02-28 10:13 | EDM.PDOC ---
ED HPI GENERAL MEDICAL PROBLEM - General Chief Complaint: Eye Problems Stated Complaint: SWOLLEN RIGHT EYE Time Seen by Provider: 02/28/20 09:59 Source of Information: Reports: Patient History Limitations: Reports: No Limitations - History of Present Illness INITIAL COMMENTS - FREE TEXT/NARRATIVE: Patient is a 34-year-old female who presents today for left eye swelling. Patient states her dog currently has a staph infection that he rubbed against her eye and since that time has had some eye swelling redness and drainage. Patient also reports pain in the eye when looking laterally to the left. Patient denies any fever chills nausea vomiting or change in vision. left eye Pain Score (Numeric/FACES): 10 - Related Data Allergies Allergy/AdvReac Type Severity Reaction Status Date / Time No Known Allergies Allergy Verified 02/28/20 09:43 Home Meds: Home Meds ClonazePAM [KlonoPIN] 0 mg PO DAILY 01/26/20 [History] traZODone HCl [Trazodone HCl] 0 mg PO DAILY 01/26/20 [History] Amoxicillin/Clavulanate K [Augmentin 875-125 MG] 1 tab PO BID 10 Days #20 tablet 02/28/20 [Rx] Past Medical History - Past Health History Medical/Surgical History: Denies Medical/Surgical History HEENT History: Reports: None Cardiovascular History: Reports: None Respiratory History: Reports: None Gastrointestinal History: Reports: None Genitourinary History: Reports: None 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, 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 Musculoskeletal History: Reports: None Neurological History: Reports: None Psychiatric History: Reports: Anxiety, Panic Attack Endocrine/Metabolic History: Reports: None Hematologic History: Reports: None Immunologic History: Reports: None Oncologic (Cancer) History: Reports: None Dermatologic History: Reports: None - Infectious Disease History Infectious Disease History: Reports: Chicken Pox, Influenza, Shingles - Past Surgical History Head Surgeries/Procedures: Reports: None Other Musculoskeletal Surgeries/Procedures:: breast augmentation Social & Family History - Family History Family Medical History: No Pertinent Family History - Caffeine Use Caffeine Use: Reports: None - Recreational Drug Use Recreational Drug Use: No ED ROS GENERAL - Review of Systems Review Of Systems: See Below Constitutional: Reports: No Symptoms HEENT: Reports: Eye Discharge, Eye Pain Respiratory: Reports: No Symptoms Cardiovascular: Reports: No Symptoms Endocrine: Reports: No Symptoms GI/Abdominal: Reports: No Symptoms : Reports: No Symptoms Musculoskeletal: Reports: No Symptoms Skin: Reports: No Symptoms Neurological: Reports: No Symptoms Psychiatric: Reports: No Symptoms Hematologic/Lymphatic: Reports: No Symptoms Immunologic: Reports: No Symptoms ED EXAM GENERAL W FULL EYE - Physical Exam Exam: See Below Exam Limited By: No Limitations General Appearance: Alert, No Apparent Distress Eye Exam: Bilateral Eye: EOMI, PERRL Eyelids: Left: Edema, Erythema Conjunctiva & Sclera: Bilateral: Normal Appearance Cornea Exam: Bilateral: Normal Appearance Extraocular Movements: Bilateral: Intact Respiratory/Chest: No Respiratory Distress Extremities: Normal Range of Motion Neurological: Alert, Oriented, CN II-XII Intact, Normal Cognition, Normal Gait Course - Vital Signs Last Recorded V/S: Last Vital Signs Temp 97 F 02/28/20 11:28 Pulse 56 L 02/28/20 11:28 Resp 14 02/28/20 11:28 BP 122/75 02/28/20 11:28 Pulse Ox 100 02/28/20 11:28 - Orders/Labs/Meds Orders: Active Orders 24 hr Category Date Time Status Ampicillin/Sulbactam Na [Unasyn] 3 gm Med 02/28/20 11:51 Ordered Sodium Chloride 0.9% [Normal Saline] 100 ml IV ONETIME Labs: Laboratory Tests 02/28/20 02/28/20 02/28/20 Range/Units 10:04 10:21 10:21 WBC 10.51 (4.0-11.0) K/uL RBC 4.29 L (4.30-5.90) M/uL Hgb 14.1 (12.0-16.0) g/dL Hct 42.8 (36.0-46.0) % MCV 99.8 H (80.0-98.0) fL MCH 32.9 H (27.0-32.0) pg MCHC 32.9 (31.0-37.0) g/dL RDW Std Deviation 46.9 (28.0-62.0) fl RDW Coeff of Yahaira 13 (11.0-15.0) % Plt Count 192 (150-400) K/uL MPV 11.60 (7.40-12.00) fL Neut % (Auto) 66.1 (48.0-80.0) % Lymph % (Auto) 24.4 (16.0-40.0) % Dane % (Auto) 6.4 (0.0-15.0) % Eos % (Auto) 2.5 (0.0-7.0) % Baso % (Auto) 0.6 (0.0-1.5) % Neut # (Auto) 7.0 H (1.4-5.7) K/uL Lymph # (Auto) 2.6 H (0.6-2.4) K/uL Dane # (Auto) 0.7 (0.0-0.8) K/uL Eos # (Auto) 0.3 (0.0-0.7) K/uL Baso # (Auto) 0.1 (0.0-0.1) K/uL Nucleated RBC % 0.0 /100WBC Nucleated RBCs # 0 K/uL Sodium 139 (136-145) mmol/L Potassium 4.4 (3.5-5.1) mmol/L Chloride 106 (98-107) mmol/L Carbon Dioxide 26.4 (21.0-32.0) mmol/L BUN 14 (7.0-18.0) mg/dL Creatinine 0.8 (0.6-1.0) mg/dL Est Cr Clr Drug Dosing 87.85 mL/min Estimated GFR (MDRD) > 60.0 ml/min Glucose 94 (74-106) mg/dL Calcium 8.7 (8.5-10.1) mg/dL Total Bilirubin 0.5 (0.2-1.0) mg/dL AST 15 (15-37) IU/L ALT 26 (14-63) IU/L Alkaline Phosphatase 49 (46-116) U/L C-Reactive Protein <0.20 (0.00-0.90) mg/dL Total Protein 6.8 (6.4-8.2) g/dL Albumin 3.6 (3.4-5.0) g/dL Globulin 3.2 (2.6-4.0) g/dL Albumin/Globulin Ratio 1.1 (0.9-1.6) Urine HCG, Qual NEGATIVE (NEGATIVE) Meds: Medications Discontinued Medications Generic Name Dose Route Start Last Admin Trade Name Freq PRN Reason Stop Dose Admin Iopamidol 100 ml 02/28/20 11:12 12/04/20 11:13 Isovue Multipack-370 (76%) IVPUSH 02/28/20 11:13 100 ml ONETIME ONE Administration - Re-Assessments/Exams Free Text/Narrative Re-Assessment/Exam: 02/28/20 11:52 Patient CAT scan performed patient has a periorbital cellulitis. Patient will be treated with IV antibiotics here in ED and sent home with oral. Patient will be given strict return precautions. Patient pain is well controlled. Departure - Departure Time of Disposition: 11:54 Disposition: Home, Self-Care 01 Condition: Good Clinical Impression: Periorbital cellulitis of left eye - Discharge Information *PRESCRIPTION DRUG MONITORING PROGRAM REVIEWED*: Not Applicable *COPY OF PRESCRIPTION DRUG MONITORING REPORT IN PATIENT LOTTIE: Not Applicable Instructions: Preseptal Cellulitis, Adult Referrals: Shonna Sandhu ROLL CLEANER [Primary Care Provider] - Forms: ED Department Discharge Additional Instructions: The following information is given to patients seen in the emergency department who are being discharged to home. This information is to outline your options for follow-up care. We provide all patients seen in our emergency department with a follow-up referral. The need for follow-up, as well as the timing and circumstances, are variable depending upon the specifics of your emergency department visit. If you don't have a primary care physician on staff, we will provide you with a referral. We always advise you to contact your personal physician following an emergency department visit to inform them of the circumstance of the visit and for follow-up with them and/or the need for any referrals to a consulting specialist. The emergency department will also refer you to a specialist when appropriate. This referral assures that you have the opportunity for follow-up care with a specialist. All of these measure are taken in an effort to provide you with optimal care, which includes your follow-up. Under all circumstances we always encourage you to contact your private physician who remains a resource for coordinating your care. When calling for follow-up care, please make the office aware that this follow-up is from your recent emergency room visit. If for any reason you are refused follow-up, please contact the [facility] Emergency Department at and asked to speak to the emergency department charge nurse. Please follow up with your primary care physician. If you do not have a primary care physician, see below: [facility] [address] [place] [address] My [facility] [address] [place] [address] Follow with your primary care physician. Please take antibiotics as prescribed. If you start having any increased pain with movements of your eyes or fevers chills or change in vision please return to the ED. Sepsis Event Note (ED) - Evaluation Sepsis Screening Result: No Definite Risk - Focused Exam Vital Signs: Vital Signs Temp Pulse Resp BP Pulse Ox 02/28/20 11:28 97 F 56 L 14 122/75 100 02/28/20 09:44 98.2 F 71 16 116/71 99 - My Orders Last 24 Hours: My Active Orders 02/28/20 11:51 Ampicillin/Sulbactam Na [Unasyn] 3 gm Sodium Chloride 0.9% [Normal Saline] 100 ml IV ONETIME - Assessment/Plan Last 24 Hours: My Active Orders 02/28/20 11:51 Ampicillin/Sulbactam Na [Unasyn] 3 gm Sodium Chloride 0.9% [Normal Saline] 100 ml IV ONETIME Plan: Is a 34-year-old female presents today for left eye swelling. Patient has some pain with looking laterally in the left eye. Patient has no fever chills. Patient likely has an vesta orbital cellulitis also ordered cellulitis with CAT scan will also obtain labs.
[2020-02-28 10:54] LABS: BLOOD UREA NITROGEN,BUN 14 mg/dL (7.0-18.0); CARBON DIOXIDE,CO2 26.4 mmol/L (21.0-32.0); CHLORIDE,CL 106 mmol/L (98-107); GLUCOSE RANDOM 94 mg/dL (74-106); POTASSIUM,K 4.4 mmol/L (3.5-5.1); SODIUM,NA 139 mmol/L (136-145)
[2020-02-28] MEDS ORDERED: Iopamidol 755 MG/ML 500 ML Multipack Bottle IVPUSH ONE (11:12)
[2020-02-28 11:29] VITALS: PULSE 56
--- NOTE | 2020-02-28 11:46 | CT ---
Indication: Left eye redness and swelling. Technique: A CT volumetric acquisition was performed of the facial bones during intravenous infusion of 100 cc of Isovue 370. Comparison: None available Findings: CT images demonstrated no evidence of induration within the retro-orbital fat. The superior ophthalmic veins show normal vascular enhancement. The globes appear symmetric. There is mild preseptal soft tissue swelling about the anterior left orbit. There is normal aeration the maxillary, ethmoid, frontal and sphenoid sinuses. Mastoid air cells middle ear cavities are clear. There is a small nasal septal bone spur with slight rightward deviation. The had pterygoid plates appear intact. There is anatomic alignment of the temporomandibular joints. Bony mandible appears normal. The visualized brain appears normal. Impression: Preseptal cellulitis but no evidence of deep infection within the retro-orbital fat. Please note that all CT scans at this facility use dose modulation, iterative reconstruction, and/or weight-based dosing when appropriate to reduce radiation dose to as low as reasonably achievable. Dictated by Doroteo Nicole MD @ Feb 28 2020 11:34AM Signed by Dr. Doroteo Nicole @ Feb 28 2020 11:46AM
[2020-02-28] MEDS ORDERED: Ampicillin/Sulbactam Na 3 GM in Sodium Chloride 0.9% 100 ML IV ONE ×2 (11:51→12:15)
[2020-02-28 12:59] VITALS: BP 107/68
== END 2020-02-28 13:02 | disposition home or self-care (01) ==
LOC: MW.ED 09:34
DX: L03.213 Periorbital cellulitis (principal); F41.9 Anxiety disorder, unspecified; Z79.899 Other long term (current) drug therapy
CPT/HCPCS: 36415; 70487; 80053; 81025; 85025; 86140; 96365; 99284; J0295; J7050; Q9967

== ENCOUNTER 2020-02-29 15:04 | Emergency (ER) | payer SELFPAY ==
[2020-02-29 15:26] VITALS: BP 137/65; PULSE 62
--- NOTE | 2020-02-29 15:27 | EDM.PDOC ---
ED HPI GENERAL MEDICAL PROBLEM - General Chief Complaint: Eye Problems Stated Complaint: COMPLICATIONS OF LEFT EYE Time Seen by Provider: 02/29/20 15:19 - History of Present Illness INITIAL COMMENTS - FREE TEXT/NARRATIVE: History of present illness: [] Patient developed pain underneath her left eye and pain when she looks to the left. She was seen here with a preseptal cellulitis yesterday with painful left eye. Its gotten a little more painful and the pain is spread to the inferior and lateral area around the left eye. She has a sharp pain when she looks far to the left. The patient was given intravenous antibiotics and started on oral antibiotics yesterday. Review of systems: As per history of present illness and below otherwise all systems reviewed and negative. Past medical history: As per history of present illness and as reviewed below otherwise noncontributory. Surgical history: As per history of present illness and as reviewed below otherwise noncontributory. Social history: No reported history of drug or alcohol abuse. Family history: As per history of present illness and as reviewed below otherwise noncontributory. Physical exam: Constitutional - well developed, well-nourished and in no acute distress HEENT - normocephalic, no evidence of trauma - external nose and mouth normal - no mass in neck and no JVD - mucosae moist EYES - full EOM, PERRL, no icterus - no evidence of inflammation, injection, or drainage. No acuity for tiny print with her glasses is intact in the left eye. The patient has a little sharp pain when she looks extremely far to the left. A little swelling in the lateral anterior zygoma area on the left side. The upper lid swollen laterally. Respiratory - no respiratory distress, equal bilateral expansion, lungs clear to auscultation and no abnormal lung sounds Cardiovascular - Regular Rhythm with S1 and S2 appreciated and no murmur, gallop or rub. GI - abdomen soft without distension or organomegaly - normal bowel sounds - no guard or rebound Musculoskeletal no gross deformity of long bones or joints - no tenderness, swelling or edema Neurologic - Alert and oriented times four - CN II-XII grossly intact - motor sensory and coordination symmetrically normal Psychiatric - appropriate mood and affect with normal thought content Hematologic - No petechiae or purpura - mucosa appropriate color and sclera not pale - normal nail bed color and refill Integument - no rash or evidence of trauma - normal turgor Diagnostics: [] Therapeutics: [] Impression: [] Plan: [] Definitive disposition and diagnosis as appropriate pending reevaluation and review of above. left eye and face Pain Score (Numeric/FACES): 10 - Related Data Allergies Allergy/AdvReac Type Severity Reaction Status Date / Time No Known Allergies Allergy Verified 02/29/20 15:16 Home Meds: Home Meds ClonazePAM [KlonoPIN] 0 mg PO DAILY 01/26/20 [History] traZODone HCl [Trazodone HCl] 0 mg PO DAILY 01/26/20 [History] Amoxicillin/Clavulanate K [Augmentin 875-125 MG] 1 tab PO BID 10 Days #20 tablet 02/28/20 [Rx] Past Medical History - Past Health History Medical/Surgical History: Denies Medical/Surgical History HEENT History: Reports: None Cardiovascular History: Reports: None Respiratory History: Reports: None Gastrointestinal History: Reports: None Genitourinary History: Reports: None GRANT ADMINISTRATOR History: Reports: None, Other GRANT ADMINISTRATOR History: reports cysts Musculoskeletal History: Reports: None Neurological History: Reports: None Psychiatric History: Reports: Anxiety, Panic Attack Endocrine/Metabolic History: Reports: None Hematologic History: Reports: None Immunologic History: Reports: None Oncologic (Cancer) History: Reports: None Dermatologic History: Reports: None - Infectious Disease History Infectious Disease History: Reports: Chicken Pox, Influenza, Shingles - Past Surgical History Head Surgeries/Procedures: Reports: None Other Musculoskeletal Surgeries/Procedures:: breast augmentation Social & Family History - Family History Family Medical History: No Pertinent Family History - Caffeine Use Caffeine Use: Reports: None ED ROS GENERAL - Review of Systems Review Of Systems: Comprehensive ROS is negative, except as noted in HPI. ED EXAM GENERAL W FULL EYE - Physical Exam Exam: See Below Text/Narrative:: My physical exam is in the HPI Course - Vital Signs Text/Narrative:: Discussed with Dr. Padilla the medical reimbursement specialist on-call. He felt she should start to improve by tomorrow but if she was getting worse he would see her in the office. He wants her to notify him by cell phone and show up at 11 AM if she chooses to come to the office. Did not recommend any other treatment other than lubricating drops. Last Recorded V/S: Last Vital Signs Temp 36.9 C 02/29/20 15:11 Pulse 62 02/29/20 15:11 Resp 18 02/29/20 15:11 BP 137/65 02/29/20 15:11 Pulse Ox 98 02/29/20 15:11 Departure - Departure Time of Disposition: 15:43 Disposition: Home, Self-Care 01 Condition: Good Clinical Impression: Preseptal cellulitis of left eye - Discharge Information Instructions: Preseptal Cellulitis, Adult Referrals: Shonna Sandhu NP [Primary Care Provider] - Forms: ED Department Discharge Additional Instructions: The medical reimbursement specialist wants you to buy lubricating drops. You can ask the pharmacist for the best available [id number] lubricating drops. Dr. Padilla wants you to see him at 11:00 if you are getting worse tomorrow. He will be in his office. His cell number is [phone] and if you are coming he wants you to notify him. [facility] [address] [place] [address] [place] [address] The following information is given to patients seen in the emergency department who are being discharged to home. This information is to outline your options for follow-up care. We provide all patients seen in our emergency department with a follow-up referral. The need for follow-up, as well as the timing and circumstances, are variable depending upon the specifics of your emergency department visit. If you don't have a primary care physician on staff, we will provide you with a referral. We always advise you to contact your personal physician following an emergency department visit to inform them of the circumstance of the visit and for follow-up with them and/or the need for any referrals to a consulting specialist. The emergency department will also refer you to a specialist when appropriate. This referral assures that you have the opportunity for follow-up care with a specialist. All of these measure are taken in an effort to provide you with optimal care, which includes your follow-up. Under all circumstances we always encourage you to contact your private physician who remains a resource for coordinating your care. When calling for follow-up care, please make the office aware that this follow-up is from your recent emergency room visit. If for any reason you are refused follow-up, please contact the [facility] Emergency Department at and asked to speak to the emergency department charge nurse. Sepsis Event Note (ED) - Evaluation Sepsis Screening Result: No Definite Risk - Focused Exam Vital Signs: Vital Signs Temp Pulse Resp BP Pulse Ox 02/29/20 15:11 36.9 C 62 18 137/65 98
== END 2020-02-29 16:00 | disposition home or self-care (01) ==
LOC: MW.ED 15:04
DX: L03.213 Periorbital cellulitis (principal); F41.9 Anxiety disorder, unspecified; Z79.899 Other long term (current) drug therapy
CPT/HCPCS: 99282; 99283

== ENCOUNTER 2020-05-21 18:36 | Emergency (ER) | payer SELFPAY ==
[2020-05-21] MEDS ORDERED: Metoclopramide 10 MG/2 ML SDV IVPUSH ONE (19:03)
[2020-05-21] MEDS ORDERED: Ketorolac 30 MG/ML SDV IVPUSH ONE (19:03)
[2020-05-21] MEDS ORDERED: Sodium Chloride 0.9% 1,000 ML IV ONE (19:03)
[2020-05-21] MEDS ORDERED: diphenhydrAMINE 50 MG/ML SDV IVPUSH ONE (19:03)
[2020-05-21] MEDS ORDERED: Ondansetron 4 MG/2 ML SDV IVPUSH ONE (19:03)
--- NOTE | 2020-05-21 19:08 | EDM.PDOC ---
ED HPI GENERAL MEDICAL PROBLEM - General Chief Complaint: Headache Stated Complaint: MIGRAINE Time Seen by Provider: 05/21/20 18:59 Source of Information: Reports: Patient History Limitations: Reports: No Limitations - History of Present Illness INITIAL COMMENTS - FREE TEXT/NARRATIVE: HISTORY AND PHYSICAL: History of present illness: Patient is a 34-year-old female who presents to the emergency room with complaints of frontal migraine headache. She states she has done 2 doses of the Imitrex without any relief. Associated light sensitivity, noise sensitivity and nausea. Denies any injury, trauma or falls. Headaches feels consistent with previous LOW in past. Patient denies any fever, chills, change in vision, syncope or near syncope. Denies any chest pain, neck/back pain, shortness of breath or cough. Denies any abdominal pain, vomiting, diarrhea, constipation or dysuria. Has not noted any blood in urine or stool. Patient has been eating and drinking appropriately. Review of systems: As per history of present illness and below otherwise all systems reviewed and negative. Past medical history: As per history of present illness and as reviewed below otherwise noncontributory. Surgical history: As per history of present illness and as reviewed below otherwise noncontributory. Social history: See social history for further information Family history: As per history of present illness and as reviewed below otherwise noncontributory. Physical exam: General: Well developed and well nourished. Alert and orientated x 3. Nontoxic in appearance and in no acute distress. Vital signs are stable and have been reviewed by me. Nursing notes were reviewed. HEENT: Atraumatic, normocephalic, pupils equal and reactive bilaterally, negative for conjunctival pallor or scleral icterus, mucous membranes moist, TMs normal bilaterally, throat clear, neck supple, nontender, trachea midline. No drooling or trismus noted. No meningeal signs. No hot potato voice noted. Lungs: Clear to auscultation bilaterally. No wheezes, rales, or rhonchi. Chest nontender. Normal work of breathing, no accessory muscles used. Heart: S1S2, regular rate and rhythm without overt murmur, gallops, or rubs. No JVD. No peripheral edema Abdomen: Soft, nondistended, nontender. Normoactive bowel sounds. Negative for masses or costovertebral tenderness Skin: Intact, warm, dry. No lesions or rashes noted. Hematologic: No petechiae or purpra. Mucosa appropriate color and normal nail bed color and refill. Extremities: Atraumatic, moves all extremities per self without difficulty or deficits, negative for cords or calf pain. Neurovascular unremarkable. Neuro: Awake, alert, oriented. Cranial nerves II through XII unremarkable. Cerebellum unremarkable. Motor and sensory unremarkable throughout. Exam nonfocal. Psychiatric: Mood and affect are appropriate. Normal thought process. Answering questions appropriately. Notes: *This patient was seen and evaluated during the 2019 SARS-CoV-2 novel coronavirus pandemic period. Community viral transmission is ongoing at time of this encounter and the emergency department is operating under pandemic response procedures. Patient feels improved after IV medications. I have talked with the patient about today's findings, in addition to providing specific details for plan of care. VSS. Reassessment at the time of disposition demonstrates that the patient is in no acute distress. The patient is stable for discharge, counseling was provided and we discussed in great detail signs and symptoms that would prompt them to return to the Emergency Department. Medication, follow up and supportive care measures were reviewed and discussed. Voices understanding and is agreeable to plan of care. Denies any further questions or concerns at this time. Diagnostics: None Therapeutics: IV benadryl, zofran, toradol, reglan, benadryl Prescription: None Impression: Migraine Headache Plan: 1. You received medications today that may cause drowsiness, so do not drive the rest of the day. Rest for the remainder of the day. 2. You can alternate Tylenol and ibuprofen as needed for pain and fever management. 3. We encourage you to follow up with your primary care provider and/or recommended specialist in the next few days for re-evaluation and further care/management. 4. If your symptoms should worsen, new symptoms develop or any of the signs and symptoms we discussed should arise please return to the emergency room or call 911 (if needed). Definitive disposition and diagnosis as appropriate pending reevaluation and re view of above. right side Pain Score (Numeric/FACES): 7 - Related Data Allergies Allergy/AdvReac Type Severity Reaction Status Date / Time No Known Allergies Allergy Verified 05/21/20 18:57 Home Meds: Home Meds ClonazePAM [KlonoPIN] 0 mg PO DAILY 01/26/20 [History] traZODone HCl [Trazodone HCl] 0 mg PO DAILY 01/26/20 [History] Past Medical History - Past Health History Medical/Surgical History: Denies Medical/Surgical History HEENT History: Reports: None Cardiovascular History: Reports: None Respiratory History: Reports: None Gastrointestinal History: Reports: None Genitourinary History: Reports: None SENIOR BEHAVIORAL SCIENTIST History: Reports: None, Other SENIOR BEHAVIORAL SCIENTIST History: reports cysts Musculoskeletal History: Reports: None Neurological History: Reports: None Psychiatric History: Reports: Anxiety, Panic Attack Endocrine/Metabolic History: Reports: None Hematologic History: Reports: None Immunologic History: Reports: None Oncologic (Cancer) History: Reports: None Dermatologic History: Reports: None - Infectious Disease History Infectious Disease History: Reports: Chicken Pox, Influenza, Shingles - Past Surgical History Head Surgeries/Procedures: Reports: None Other Musculoskeletal Surgeries/Procedures:: breast augmentation Social & Family History - Family History Family Medical History: No Pertinent Family History - Caffeine Use Caffeine Use: Reports: None ED ROS GENERAL - Review of Systems Review Of Systems: Comprehensive ROS is negative, except as noted in HPI. - Physical Exam Exam: See Below (See dictation) Course - Vital Signs Last Recorded V/S: Last Vital Signs Temp 97.5 F 05/21/20 18:54 Pulse 84 05/21/20 18:54 Resp 18 05/21/20 18:54 BP 110/82 05/21/20 18:54 Pulse Ox 98 05/21/20 18:54 - Orders/Labs/Meds Orders: Active Orders 24 hr Category Date Time Status Sodium Chloride 0.9% [Normal Saline] 1,000 ml Med 05/21/20 19:03 Active IV STAT Medication Orders Sodium Chloride (Normal Saline) 1,000 mls @ 999 mls/hr IV STAT ONE Stop: 05/21/20 20:03 Last Admin: 05/21/20 19:28 Dose: 999 mls/hr Documented by: REX Meds: Medications Generic Name Dose Route Start Last Admin Trade Name Freq PRN Reason Stop Dose Admin Sodium Chloride 1,000 mls @ 999 mls/hr 05/21/20 19:03 05/21/20 19:28 Normal Saline IV 05/21/20 20:03 999 mls/hr STAT ONE Administration Discontinued Medications Generic Name Dose Route Start Last Admin Trade Name Freq PRN Reason Stop Dose Admin Diphenhydramine HCl 50 mg 05/21/20 19:03 05/21/20 19:30 Benadryl IVPUSH 05/21/20 19:04 50 mg ONETIME ONE Administration Ketorolac Tromethamine 30 mg 05/21/20 19:03 05/21/20 19:30 Toradol IVPUSH 05/21/20 19:04 30 mg ONETIME ONE Administration Metoclopramide HCl 10 mg 05/21/20 19:03 05/21/20 19:30 Reglan IVPUSH 05/21/20 19:04 10 mg ONETIME ONE Administration Ondansetron HCl 4 mg 05/21/20 19:03 05/21/20 19:30 Zofran IVPUSH 05/21/20 19:04 4 mg ONETIME ONE Administration Departure - Departure Time of Disposition: 19:49 Disposition: Home, Self-Care 01 Clinical Impression: Migraine - Discharge Information Instructions: Migraine Headache, [id number] Referrals: Shonna Sandhu FACILITIES OPERATIONS TECHNICIAN [Primary Care Provider] - Forms: ED Department Discharge Additional Instructions: The following information is given to patients seen in the emergency department who are being discharged to home. This information is to outline your options for follow-up care. We provide all patients seen in our emergency department with a follow-up referral. The need for follow-up, as well as the timing and circumstances, are variable depending upon the specifics of your emergency department visit. If you don't have a primary care physician on staff, we will provide you with a referral. We always advise you to contact your personal physician following an emergency department visit to inform them of the circumstance of the visit and for follow-up with them and/or the need for any referrals to a consulting specialist. The emergency department will also refer you to a specialist when appropriate. This referral assures that you have the opportunity for follow-up care with a specialist. All of these measure are taken in an effort to provide you with optimal care, which includes your follow-up. Under all circumstances we always encourage you to contact your private physician who remains a resource for coordinating your care. When calling for follow-up care, please make the office aware that this follow-up is from your recent emergency room visit. If for any reason you are refused follow-up, please contact the [facility] Emergency Department at and asked to speak to the emergency department charge nurse. [facility] [address] [place] [address] [facility] [address] [place] [address] Thank you for choosing the [facility] emergency department in [place] for your medical needs today. It was a pleasure caring for you. Today you were seen in the emergency department for migraine headache. 1. You received medications today that may cause drowsiness, so do not drive the rest of the day. Rest for the remainder of the day. 2. You can alternate Tylenol and ibuprofen as needed for pain and fever management. 3. We encourage you to follow up with your primary care provider and/or recommended specialist in the next few days for re-evaluation and further care/management. 4. If your symptoms should worsen, new symptoms develop or any of the signs and symptoms we discussed should arise please return to the emergency room or call 911 (if needed). Sepsis Event Note (ED) - Evaluation Sepsis Screening Result: No Definite Risk - Focused Exam Vital Signs: Vital Signs Temp Pulse Resp BP Pulse Ox 05/21/20 18:54 97.5 F 84 18 110/82 98 - My Orders Last 24 Hours: My Active Orders 05/21/20 19:03 Sodium Chloride 0.9% [Normal Saline] 1,000 ml IV STAT - Assessment/Plan Last 24 Hours: My Active Orders 05/21/20 19:03 Sodium Chloride 0.9% [Normal Saline] 1,000 ml IV STAT
[2020-05-21 20:03] VITALS: BP 103/65; PULSE 56
== END 2020-05-21 20:07 | disposition home or self-care (01) ==
LOC: MW.ED 18:36
DX: G43.909 Migraine, unspecified, not intractable, without status migrainosus (principal); Z79.899 Other long term (current) drug therapy
CPT/HCPCS: 96374; 96375; 99283; J1200; J1885; J2405; J2765; J7030

== ENCOUNTER 2021-12-24 17:54 | Emergency (ER) | payer OTHER ==
[2021-12-24] MEDS ORDERED: LORazepam 2 MG/ML SDV IM ONE (18:27)
[2021-12-24 19:21] VITALS: BP 126/70; PULSE 78
== END 2021-12-24 19:13 | disposition home or self-care (01) ==
LOC: MW.ED 17:54
DX: F41.0 Panic disorder [episodic paroxysmal anxiety] (principal)
CPT/HCPCS: 96372; 99283; J2060